=== PATIENT | male | born 1960 | race Asian ===

== ENCOUNTER 2018-04-11 11:39 | Emergency (ER) | payer BC | END 2018-04-11 13:04 | disposition home or self-care (01) | LOC: E/R 11:39 | DX: M62.830 Muscle spasm of back (principal); I10 Essential (primary) hypertension | CPT/HCPCS: 99283 ==

== ENCOUNTER → 2018-05-21 | Outpatient (CLI) | payer BC | END | disposition home or self-care (01) | LOC: U/S 09:42 | DX: R10.9 Unspecified abdominal pain (principal); E80.6 Other disorders of bilirubin metabolism | CPT/HCPCS: 76705 ==

== ENCOUNTER → 2018-12-05 | Outpatient (CLI) | payer BC ==
[2018-12-05 10:12] LABS: ADD MAN DIFF? NO
[2018-12-05 10:29] LABS: BASOPHIL # 0.1 10^3/ul (0.0-0.1); BASOPHILS % 0.9 % (0.0-2.0); EOSINOPHILS # 0.2 10^3/ul (0.0-0.5); EOSINOPHILS % 3.2 % (0.0-7.0); HEMATOCRIT 44.9 % (42.0-52.0); HEMOGLOBIN 14.6 g/dl (14.0-18.0); LYMPHOCYTES # 2.3 10^3/ul (0.8-2.9); LYMPHOCYTES % 36.6 % (15.0-51.0); MEAN CORPUSCULAR HEMOGLOBIN 26.2 pg (29.0-33.0); MEAN CORPUSCULAR HGB CONC 32.5 g/dl (32.0-37.0); MEAN CORPUSCULAR VOLUME 80.5 fl (82.0-101.0); MEAN PLATELET VOLUME 10.5 fl (7.4-10.4); MONOCYTE # 0.4 10^3/ul (0.3-0.9); MONOCYTES % 5.5 % (0.0-11.0); NEUTROPHIL # 3.4 10^3/ul (1.6-7.5); NEUTROPHILS % 53.5 % (39.0-77.0); PLATELET COUNT 296 10^3/UL (140-415); RED BLOOD COUNT 5.58 10^6/ul (4.70-6.10); RED CELL DISTRIBUTION WIDTH 13.4 % (11.5-14.5)
[2018-12-05 10:29] LABS: WHITE BLOOD COUNT 6.3 10^3/ul (4.8-10.8)
[2018-12-05 11:06] LABS: ALANINE AMINOTRANSFERASE 35 IU/L (13-69); ALBUMIN 4.4 g/dl (3.3-4.9); ALBUMIN/GLOBULIN RATIO 1.51; ALKALINE PHOSPHATASE 43 IU/L (42-121); ANION GAP 6 (5-13); ASPARTATE AMINO TRANSFERASE 31 IU/L (15-46); BLOOD UREA NITROGEN 13 mg/dl (7-20); CALCIUM 9.3 mg/dl (8.4-10.2); CARBON DIOXIDE 30 mmol/L (21-31); CHLORIDE 105 mmol/L (97-110); CHOL/HDL RATIO 1.9 RATIO; CHOLESTEROL 99 mg/dl (100-200); CREATININE 0.81 mg/dl (0.61-1.24); Estimated GFR > 60 mL/min (>60); GLUCOSE 90 mg/dl (70-220); HDL CHOLESTEROL 51 mg/dl (28-71); LDL CHOLESTEROL,CALCULATED 36 mg/dl; POTASSIUM 4.8 mmol/L (3.5-5.1); SODIUM 141 mmol/L (135-144); TOTAL PROTEIN 7.3 g/dl (6.1-8.1); TRIGLYCERIDES 58 mg/dl (0-149)
[2018-12-05 14:22] LABS: HEMOGLOBIN A1C 5.6 % (0-5.9)
== END | disposition home or self-care (01) ==
LOC: LAB 09:58
DX: R73.03 Prediabetes (principal); E78.5 Hyperlipidemia, unspecified
CPT/HCPCS: 80053; 80061; 83036; 85025

== ENCOUNTER → 2018-12-31 | Outpatient (CLI) | payer BC ==
[2018-12-31 12:42] LABS: ADD MAN DIFF? NO
[2018-12-31 12:45] LABS: BASOPHILS % 0.3 % (0.0-2.0); EOSINOPHILS % 0.2 % (0.0-7.0); HEMATOCRIT 46.1 % (42.0-52.0); HEMOGLOBIN 14.8 g/dl (14.0-18.0); LYMPHOCYTES # 1.2 10^3/ul (0.8-2.9); LYMPHOCYTES % 13.4 % (15.0-51.0); MEAN CORPUSCULAR HEMOGLOBIN 26.1 pg (29.0-33.0); MEAN CORPUSCULAR HGB CONC 32.1 g/dl (32.0-37.0); MEAN CORPUSCULAR VOLUME 81.3 fl (82.0-101.0); MEAN PLATELET VOLUME 10.3 fl (7.4-10.4); MONOCYTES % 10.6 % (0.0-11.0); NEUTROPHIL # 6.8 10^3/ul (1.6-7.5); NEUTROPHILS % 75.1 % (39.0-77.0); PLATELET COUNT 244 10^3/UL (140-415); RED BLOOD COUNT 5.67 10^6/ul (4.70-6.10); RED CELL DISTRIBUTION WIDTH 14.2 % (11.5-14.5)
[2018-12-31 12:59] LABS: ANION GAP 8 (5-13); BLOOD UREA NITROGEN 12 mg/dl (7-20); CALCIUM 9.3 mg/dl (8.4-10.2); CARBON DIOXIDE 29 mmol/L (21-31); CHLORIDE 103 mmol/L (97-110); CREATININE 0.81 mg/dl (0.61-1.24); Estimated GFR > 60 mL/min (>60); GLUCOSE 104 mg/dl (70-220); POTASSIUM 4.1 mmol/L (3.5-5.1); SODIUM 140 mmol/L (135-144)
== END | disposition home or self-care (01) ==
LOC: LAB 12:20
DX: J18.9 Pneumonia, unspecified organism (principal)
CPT/HCPCS: 71046; 80048; 85025

== ENCOUNTER → 2019-04-14 | Outpatient (CLI) | payer BC ==
[2019-04-14 10:51] LABS: ADD MAN DIFF? NO
[2019-04-14 11:16] LABS: ALANINE AMINOTRANSFERASE 32 IU/L (13-69); ALBUMIN 4.3 g/dl (3.3-4.9); ALBUMIN/GLOBULIN RATIO 1.59; ALKALINE PHOSPHATASE 43 IU/L (42-121); ANION GAP 8 (5-13); ASPARTATE AMINO TRANSFERASE 42 IU/L (15-46); BILIRUBIN,INDIRECT 2.1 mg/dl (0-1.1); BILIRUBIN,TOTAL 2.1 mg/dl (0.2-1.3); BLOOD UREA NITROGEN 16 mg/dl (7-20); CALCIUM 9.1 mg/dl (8.4-10.2); CARBON DIOXIDE 27 mmol/L (21-31); CHLORIDE 104 mmol/L (97-110); CHOL/HDL RATIO 2.6 RATIO; CHOLESTEROL 125 mg/dl (100-200); CREATININE 0.92 mg/dl (0.61-1.24); Estimated GFR > 60 mL/min (>60); GLUCOSE 95 mg/dl (70-220); HDL CHOLESTEROL 48 mg/dl (28-71); LDL CHOLESTEROL,CALCULATED 55 mg/dl; POTASSIUM 4.3 mmol/L (3.5-5.1); SODIUM 139 mmol/L (135-144); TRIGLYCERIDES 110 mg/dl (0-149)
[2019-04-14 11:39] LABS: HEMOGLOBIN A1C 5.6 % (0-5.9)
[2019-04-14 11:50] LABS: PROSTATE SPECIFIC ANTIGEN 0.6 ng/ml (0.0-4.0)
[2019-04-14 12:12] LABS: WHITE BLOOD COUNT 7.4 10^3/ul (4.8-10.8)
[2019-04-14 12:12] LABS: BASOPHIL # 0.1 10^3/ul (0.0-0.1); BASOPHILS % 0.8 % (0.0-2.0); EOSINOPHILS # 0.2 10^3/ul (0.0-0.5); EOSINOPHILS % 3.2 % (0.0-7.0); HEMATOCRIT 44.4 % (42.0-52.0); HEMOGLOBIN 14.5 g/dl (14.0-18.0); LYMPHOCYTES # 2.8 10^3/ul (0.8-2.9); LYMPHOCYTES % 37.2 % (15.0-51.0); MEAN CORPUSCULAR HEMOGLOBIN 26.2 pg (29.0-33.0); MEAN CORPUSCULAR HGB CONC 32.7 g/dl (32.0-37.0); MEAN CORPUSCULAR VOLUME 80.1 fl (82.0-101.0); MEAN PLATELET VOLUME 10.8 fl (7.4-10.4); MONOCYTE # 0.4 10^3/ul (0.3-0.9); MONOCYTES % 5.4 % (0.0-11.0); NEUTROPHIL # 3.9 10^3/ul (1.6-7.5); PLATELET COUNT 289 10^3/UL (140-415); RED BLOOD COUNT 5.54 10^6/ul (4.70-6.10); RED CELL DISTRIBUTION WIDTH 13.8 % (11.5-14.5)
== END | disposition home or self-care (01) ==
LOC: LAB 10:40
DX: R73.03 Prediabetes (principal); E78.5 Hyperlipidemia, unspecified; N40.0 Benign prostatic hyperplasia without lower urinary tract symptoms
CPT/HCPCS: 80053; 80061; 83036; 84153; 84154; 85025